=== PATIENT | male | born 1955 | race Caucasian/White ===

== ENCOUNTER → 2020-03-14 | Outpatient (CLI) | payer SELFPAY ==
[~2020-03-14] MED LIST: EFFEXOR XR37.5 M1 PO; INDERAL LA120 M1 PO; INDERAL LA60 MG PO; LISINOPRIL40 MG PO; MASON NATURAL2000 IU PO
[2020-03-14 12:53] LABS: BASO % 0.5 % (0.0-1.0); EOS # 0.1 10*3/uL (0.0-0.4); EOS % 0.8 % (1.0-4.0); HEMATOCRIT 39.7 % (42.0-52.0); LYMPH # 0.9 10*3/uL (1.3-4.4); LYMPH % 10.2 % (27.0-41.0); MEAN CELL VOLUME 88.4 fl (80.0-94.0); MEAN CORPUSCULAR HGB 30.3 pg (27.0-31.0); MEAN CORPUSCULAR HGB CONC 34.3 g/dl (33.0-37.0); MEAN PLATELET VOLUME 10.7 fl (9.6-12.3); MONO # 0.6 10*3/uL (0.1-1.0); MONO % 7.1 % (3.0-9.0); NEUT # 6.8 10*3/uL (2.3-7.9); PLATELET COUNT AUTOMATED 304 10*3/uL (130-400); RED BLOOD COUNT 4.49 10*6/uL (4.50-5.90); WHITE BLOOD COUNT 8.4 10*3/uL (4.8-10.8)
[2020-03-14 13:24] LABS: ALBUMIN 4.1 gm/dl (3.1-4.5); BUN 27 mg/dl (7-24); CHLORIDE 103 mmol/L (98-107); CHOLESTEROL 161 mg/dL (<200); CREATININE 1.12 mg/dL (0.70-1.30); POTASSIUM 4.4 mmol/L (3.5-5.1); SGOT/AST 22 IU/L (3-35); SGPT/ALT 25 U/L (12-78); SODIUM 137 mmol/L (136-145); TOTAL PROTEIN 7.3 gm/dL (6.4-8.2); TRIGLYCERIDES 75 mg/dl (<150); VLDL CHOLESTEROL 15 mg/dL (6-40)
[2020-03-14 13:30] LABS: ALKALINE PHOSPHATASE 87 U/L (45-117); FREE T4 1.52 ng/dl (0.76-1.46); HDL CHOLESTEROL 55 mg/dl (40-60); LDL CHOLESTEROL 91 mg/dL (9-159); THYROID STIM HORMONE (HS) 0.567 uIU/ml (0.358-4.75); VITAMIN D, 25-HYDROXY 45.1 ng/mL (30-100)
[2020-03-15 08:08] LABS: RHEUMATOID ARTHRITIS FACTOR <10.0 IU/mL (0.0-13.9)
[2020-03-16 01:08] LABS: CCP ANTIBODIES IGG/IGA 124 units (0-19)
== END | disposition home or self-care (01) ==
LOC: LAB 11:55
PROVIDERS: ATTEND Internal Medicine
DX: Z00.00 Encounter for general adult medical examination without abnormal findings (principal); I10 Essential (primary) hypertension; E55.9 Vitamin D deficiency, unspecified; M25.50 Pain in unspecified joint; Z13.1 Encounter for screening for diabetes mellitus; Z13.220 Encounter for screening for lipoid disorders; Z13.21 Encounter for screening for nutritional disorder